=== PATIENT | female | born 1960 | race Caucasian/White ===

== ENCOUNTER 2017-04-04 05:43 | Emergency (ER) | payer OTHER ==
[~2017-04-04] VITALS: Ht 162.6 cm; Wt 75.6 kg
[~2017-04-04 05:43] MED LIST: CELEBREX200 MG PO; DILAUDID2 MG PO; GABAPENTIN300 MG PO; IMITREX6 MG/0.52 SC; LASIX40 MG PO; LO-DOSE ASPIRIN81 M1 PO; MOTRIN600 MG PO; NEURONTIN300 MG PO; NOHOMEMEDS; OXYCODONE-APAP1 EAC6 PO; PERCOCET 10/1 TABLET PO; TIZANIDINE HCL2 M1 PO; VALIUM5 MG PO; ZOFRAN ODT4 MG PO
[2017-04-04 07:33] LABS: HEMATOCRIT 37.9 % (36.0-46.0); MCH 31.9 PG (29.0-34.0); MCV 96.7 FL (83-99); MEAN PLAT.VOLUME 9.4 uM^3 (9.5-12.4); PLATELET COUNT 253 K/uL (156-360); RBC DIS.WIDTH-CV 13.4 % (11.8-14.6); RBC DIS.WIDTH-SD 48.5 % (39-53); RED BLOOD COUNT 3.92 M/uL (3.80-5.20); WHITE BLOOD COUNT 9.1 K/uL (4.1-10.2)
[2017-04-04 07:37] LABS: ADD MIUA? YES; BILIRUBIN NEGATIVE; BLOOD NEGATIVE; COLOR YELLOW ((YELLOW)); GLUCOSE (STRIP) NEGATIVE; KETONES NEGATIVE; LEUKOCYTES NEGATIVE; NITRITE POSITIVE; PROTEIN (STRIP) 30; SPECIFIC GRAVITY 1.014 (1.000-1.030); UROBILINOGEN 0.2 MG/DL (0.2-1.0)
[2017-04-04 07:42] LABS: BACTERIA NONE SEEN /HPF; EPITHELIAL CELLS RARE /HPF; MUCUS NONE SEEN /LPF; RED BLOOD CELLS 0-5 /HPF (0-5); UCUL ADDED? NO; WHITE BLOOD CELLS 0-5 /HPF (0-5)
[2017-04-04 07:50] LABS: CHLORIDE 111 mEq/L (99-109); SODIUM 140 mEq/L (136-147)
[2017-04-04 07:51] LABS: GLUCOSE 83 mg/dL (70-99)
[2017-04-04 07:53] LABS: ANION GAP 7 MEQ/L (2-14)
[2017-04-04 07:55] LABS: GFR ESTIMATE (CALCULATED) > 59 mL/min/
[2017-04-04 07:56] LABS: UREA NITROGEN (BUN) 23 mg/dL (9-23)
[2017-04-04] MEDS ORDERED: ATARAX,VISTARIL50 MG PO ×2 (08:25→08:26)
[2017-04-04] MEDS ORDERED: MACROBID100 MG PO (08:26)
[2017-04-04 08:41] VITALS: BP 148/68
== END 2017-04-04 08:47 | disposition home or self-care (01) ==
LOC: EME 05:43
PROVIDERS: Nurse Practitioner Family
DX: N39.0 Urinary tract infection, site not specified (principal); G47.00 Insomnia, unspecified; F41.9 Anxiety disorder, unspecified; G89.29 Other chronic pain; F17.200 Nicotine dependence, unspecified, uncomplicated
CPT/HCPCS: 70450; 80048; 81003; 85027; 99281; 99284; Q0177

== ENCOUNTER → 2017-11-22 | Outpatient (CLI) | payer OTHER ==
[~2017-11-22] MED LIST changes: +ATARAX,VISTARIL50 MG PO; +MACROBID100 MG PO
== END | disposition home or self-care (01) ==
DX: M17.11 Unilateral primary osteoarthritis, right knee (principal); R26.2 Difficulty in walking, not elsewhere classified; M25.561 Pain in right knee; M25.661 Stiffness of right knee, not elsewhere classified; Z74.1 Need for assistance with personal care
CPT/HCPCS: 97161 GP; 97165 GO; 97530 GP; 97535 GO

== ENCOUNTER 2017-12-11 22:08 | Inpatient (IN) | payer OTHER ==
[~2017-12-11] VITALS: Ht 160 cm; Wt 75.9 kg
[~2017-12-11 22:08] MED LIST changes: +AMBIEN5 MG PO; +ASPIR 8181 M1 PO; +ATIVAN0.5 MG PO; +EPIPEN ADU0.3 MG/0.3 IM; +IMITREX25 MG PO; +MOTRIN800 MG PO; +ZANAFLEX2 M1 PO
[2017-12-12 07:45] VITALS: BP 128/60
[2017-12-12 08:03] LABS: CHLORIDE 115 MEQ/L (99-109); CREATININE 0.5 MG/DL (0.6-1.3); GFR ESTIMATE (CALCULATED) > 59 mL/min/; GLUCOSE 94 mg/dL (70-99); POTASSIUM 3.3 MEQ/L (3.7-5.4); SODIUM 143 MEQ/L (136-147); UREA NITROGEN (BUN) 12 mg/dL (9-23)
[2017-12-12 15:19] VITALS: BP 131/61
[2017-12-12 18:15] VITALS: BP 118/56
[2017-12-12 20:55] VITALS: BP 131/58
[2017-12-12 22:15] VITALS: BP 109/56
[2017-12-13 00:11] VITALS: BP 142/65
[2017-12-13 08:18] VITALS: BP 151/70
[2017-12-13 09:56] LABS: HEMATOCRIT 34.4 % (36.0-46.0); HEMOGLOBIN 11.5 G/DL (11.9-15.5); MCV 95.6 FL (83-99)
[2017-12-13 11:36] VITALS: BP 154/68
[2017-12-13 15:47] VITALS: BP 159/97
[2017-12-13 20:10] VITALS: BP 132/61
[2017-12-14 00:22] VITALS: BP 141/61
[2017-12-14 04:21] VITALS: BP 126/91
[2017-12-14 07:50] VITALS: BP 143/70
[2017-12-14 08:33] LABS: CHLORIDE 108 MEQ/L (99-109); CREATININE 0.5 MG/DL (0.6-1.3); GFR ESTIMATE (CALCULATED) > 59 mL/min/; GLUCOSE 108 mg/dL (70-99); POTASSIUM 3.6 MEQ/L (3.7-5.4); SODIUM 142 MEQ/L (136-147); UREA NITROGEN (BUN) 6 mg/dL (9-23)
[2017-12-14] MEDS ORDERED: OXYCONTIN10 MG PO (09:26)
[2017-12-14] MEDS ORDERED: ELIQUIS2.5 MG PO (09:26)
[2017-12-14] MEDS ORDERED: Salonpas 4% Patch TD (09:26)
[2017-12-14 12:15] VITALS: BP 114/54
[2017-12-14 15:30] VITALS: BP 143/65
== END 2017-12-14 16:24 | disposition home or self-care (01) | DRG 470 ==
LOC: ENRESERV 22:08 → 2SOUTH 12-12 07:04 → 3WEST 12-12 15:05
PROVIDERS: Orthopaedic Surgery; Physician Assistant
PROC: 0SRC0J9 Replacement of Right Knee Joint with Synthetic Substitute, Cemented, Open Approach (ICD-10-PCS; principal; 2017-12-12)
DX: M17.11 Unilateral primary osteoarthritis, right knee (principal); E87.6 Hypokalemia; F17.210 Nicotine dependence, cigarettes, uncomplicated; G89.29 Other chronic pain; G43.909 Migraine, unspecified, not intractable, without status migrainosus; Z82.49 Family history of ischemic heart disease and other diseases of the circulatory system; Z80.0 Family history of malignant neoplasm of digestive organs
CPT/HCPCS: 80048; 85014; 85018; 97530 GO; C1713; J0131; J0690; J1170; J1885; J2250; J2405; J2795; J7050; J7120; S0020